=== PATIENT | male | born 1960 | race Caucasian/White ===

== ENCOUNTER 2017-05-25 05:38 | Observation (INO) | payer OTHER ==
[~2017-05-25] VITALS: Ht 172.7 cm; Wt 71.0 kg
[~2017-05-25 05:38] MED LIST: ACET500L PO; CLON0.2T PO; LISI40TA PO
[2017-05-25] MEDS ORDERED: INSULIN HUMAN REGULAR 1,000 UNITS/10 ML VIAL SQ PRN (06:00)
[2017-05-25] MEDS ORDERED: SODIUM CHLORID 0.9% 500 ML IV PRN (06:00)
[2017-05-25] MEDS ORDERED: METOPROLOL TARTRATE 25 MG TAB PO PRN (06:00)
[2017-05-25] MEDS ORDERED: CHLORHEXIDINE GLUCONATE 2 % 1 PACK (2 CLOTHS) TOPICAL PRN (06:00)
[2017-05-25] MEDS ORDERED: CLINDAMYCIN 900 MG/NS 100 ML IV SCH ×2 (06:15)
[2017-05-25] MEDS ORDERED: MAPA500T13 PO (06:22)
[2017-05-25] MEDS: LACTATED RINGER'S 1000 ML IV PRN ×2 (06:30→10:13)
[2017-05-25] MEDS ORDERED: BETAMETHASONE SOD PHOS/ACETATE SUSP 30 MG/5 ML VIAL ONE (06:34)
[2017-05-25] MEDS ORDERED: BUPIVACAINE/EPINEPHRINE 0.5% 50 ML VIAL ONE (06:34)
[2017-05-25] MEDS ORDERED: GELATIN 12 MM/7 MM FOAM ONE (06:35)
[2017-05-25] MEDS: POVIDONE IODINE 5% (ANTISEPSIS KIT) 4 APPLICATIONS EACH NARE PRN ×2 (06:35→10:13)
[2017-05-25] MEDS ORDERED: GENTAMICIN SULFATE 80 MG/2 ML VIAL ONE (06:35)
[2017-05-25] MEDS: POVIDONE IODINE 7.5% SCRUB 118 ML BOTTLE TOPICAL SCH ×2 (06:46→10:13)
[2017-05-25] MEDS ORDERED: ceFAZolin INJ 1,000 MG VIAL ONE (07:18)
[2017-05-25] MEDS ORDERED: BISACODYL 10 MG SUPP RECTAL PRN (09:30)
[2017-05-25] MEDS ORDERED: SODIUM CHLORIDE 0.9% FLUSH 10 ML FLUSH IV FLUSH PRN (09:30)
[2017-05-25] MEDS ORDERED: Post-op Orders (for Pharmacy) MISC XX ONE (09:30)
[2017-05-25] MEDS ORDERED: SOD PHOSPHATE/SOD BIPHOSPHATE (ADULT) ENEMA 133ML PR PRN (09:30)
[2017-05-25] MEDS ORDERED: ONDANSETRON HCL 4 MG/2 ML VIAL IV PUSH PRN (09:30)
[2017-05-25] MEDS ORDERED: oxyCODONE/ACETAMINOPHEN 5 MG/325 MG TAB PO PRN (09:30)
--- NOTE | 2017-05-25 09:30 | HHI.PR ---
cc: Madelyn Alberts MD Immediate Post Op Note Procedure Date: May 25, 2017 Pre Op Diagnosis: L3-L4 disc herniation with extrusion Post Op Diagnosis: same Surgeon: Madelyn Alberts Rod And Tube Straightener(s): Rex Martínez Procedure: L3-4 discectomy, laminectomy with partial facetectomy and foraminotomy Findings: Extruded L3-4 disc herniation, bilaterally Complications: none Specimen(s) removed: none Estimated blood loss: 50cc Anesthesia: General Drains: Hemovac Patient to: PACU Patient Condition: Good Date/Time of Procedure: SEE SURGICAL CARE RECORD Madelyn Alberts MD May 25, 2017 09:30
[2017-05-25] MEDS ORDERED: *MEPERIDINE 25 MG INJ VIAL PERIprocedural Use ONLY ONE (09:48)
--- NOTE | 2017-05-25 10:26 | PD.OP ---
cc: Madelyn Alberts MD Operative Report L3-L4 disc herniation with extruded fragments with radiculopathy Postoperative Diagnosis: Same Procedure: 1. L3-L4 laminectomies with partial facetectomies and foraminotomies Anesthesia: Gen. Surgeon: Madelyn Alberts Stakes Player(s): Rex Quigley Operation and Findings: Indications for procedure: Patient is a 56-year-old man who presented to my clinic after a work injury with acute onset of low back pain and bilateral radiculopathy. Patient had attempted several weeks of nonoperative management with anti-inflammatories, steroids, gabapentin, activity modification without any improvement. In fact, patient had worsening radiculopathy over the week prior to his visit. He reported several falls at home due to weakness and pain. On exam patient had severe radiculopathy in the right and left L4 nerve distributions with quad weakness and difficulty with ambulation as a result of this. Risks, benefits, alternatives were discussed with the patient. I did discuss the possibility of continuing nonoperative management, however, given his weakness I did also discuss the option of operative intervention in the form of L3-L4 decompression with bilateral hemilaminectomies, possible L4-L5 decompression. I did discuss with the patient the possibility of also performing central decompression given the size of the extruded disc fragments bilaterally. Risks of surgery including but not limited to: Anesthesia, infection, nerve injury leading to weakness and paralysis, hematoma, recurrent disc herniation, adjacent segment disease, future instability, possible need for further surgery, and other unforeseen complication was discussed with the patient. At this time he did wish to proceed with the above-mentioned procedure. Description of procedure: The patient was brought back to the operating room. Gen. anesthesia then ensued. The patient was then placed prone on the operating room table with all bony prominences well-padded. The patient was prepped and draped in standard sterile fashion. A timeout was performed to identify the correct patient, location, and procedure to be performed. Preoperative antibiotics were given prior to incision. The level was identified with fluoroscopy and a central midline incision was made through the skin and subcutaneous tissue. The paraspinals were elevated off the laminas and deep retractors placed. The interlaminar space at L3-L4 was identified and verified with fluoroscopy. Initially, a right-sided hemilaminectomy was performed, however, adequate access to the exiting and traversing nerve roots was unable to be obtained due to a large extruded disc fragment. At this time I made the decision to perform a full central decompression to allow better mobilization of the thecal sac and identification of the exiting and traversing nerve roots. Central decompression was then started at the L3-L4 with the use of a Leksell rongeur and a high-speed bur. Once the dorsal lamina was thinned, Kerrisons and Leksell's were utilized to remove the remaining lamina and ligamentum. The central decompression was then widened, including partial facetectomies and foraminotomies bilaterally, with the use of Kerrisons and curettes to allow identification of the exiting, L3 and traversing, L4 nerves, bilaterally. The thecal sac was mobilized towards the right, and several extruded disc fragments were removed from the left lateral recess. The exiting left L3 and traversing L4 nerve roots were found to be free of compression at this time. The thecal sac was then mobilized towards the left, a large extruded disc fragment was found in the right lateral recess compressing and pushing the L4 right nerve posterior and caudal. The right exiting L3 nerve was identified and protected and the extruded disc fragment was removed. The thecal sac, right L3 and right L4 nerve roots were found to be free of compression at this time. The wound was irrigated. The disc space was found to be flush with the vertebral bodies and no other extruded fragments were found. Once I was satisfied with the decompression, the wound was irrigated. Hemostasis was achieved with the use of bipolar electrocautery and thrombostatic agent. A deep Hemovac was placed. The fascia was then closed with deep #1 Vicryl. The subcutaneous tissue was closed with 3-0 Vicryl and the skin closed with Monocryl and Steri-Strips. A sterile dressing was placed. Patient was then placed back onto stretcher and awoken from general anesthesia without complication. It should be noted the patient remained hemodynamically stable throughout the procedure. Disposition: Patient will be mobilized today. Patient was instructed to avoid bending, lifting greater than 10 pounds, and twisting. Madelyn Alberts MD May 25, 2017 10:26
[2017-05-25] MEDS ORDERED: *morphine SULFATE 8 MG/ML PERIprocedure ONLY ONE (10:30)
[2017-05-25] MEDS ORDERED: MORPHINE SULFATE 2 MG/ML INJ IV PUSH PRN (11:00)
[2017-05-25] MEDS ORDERED: DO NOT ADM ANY ANTICOAGULANT DRUGS PRN (11:00)
[2017-05-25 11:58] VITALS: BP 136/90; PULSE 83; RESP 20; TEMP 97.3; O2SAT 96
[2017-05-25] MEDS ORDERED: ROCURONIUM INJ 50 MG/5 ML SYRINGE IV PUSH ONE (12:00)
[2017-05-25] MEDS ORDERED: DEXAMETHASONE SOD PHOS 4 MG/ML VIAL IV ONE (12:00)
[2017-05-25] MEDS ORDERED: PHENYLEPH/NS 1000 MCG/10 ML SYR IV ONE (12:00)
[2017-05-25] MEDS ORDERED: PROPOFOL 200 MG/20 ML AMP IV ONE (12:00)
[2017-05-25] MEDS ORDERED: PHENYLEPHRINE HCL 10 MG/ML VIAL IV ONE (12:00)
[2017-05-25] MEDS ORDERED: VECURONIUM BROMIDE 20 MG VIAL IV ONE (12:00)
[2017-05-25] MEDS ORDERED: LIDOCAINE HCL 1% PF 5 ML AMPULE OTHER ONE (12:00)
[2017-05-25] MEDS ORDERED: MIDAZOLAM HCL 2 MG/2 ML VIAL IV ONE (12:00)
[2017-05-25] MEDS ORDERED: ONDANSETRON HCL 4 MG/2 ML VIAL IV PUSH ONE (12:00)
[2017-05-25 13:57] VITALS: O2SAT 95
--- NOTE | 2017-05-25 14:32 | RADRPT ---
EXAM DATE/TIME: 05/25/2017 08:16 [facility] COMPARISON: No previous studies available for comparison. INDICATIONS : Lower back pain, L3-L4 laminectomy. MEDICAL HISTORY : None. SURGICAL HISTORY : None. ENCOUNTER: Initial ACUITY: 1 day PAIN SCORE: Non-responsive. LOCATION: Bilateral lumbar FINDINGS: FINDINGS: Single lateral view of the spine demonstrates the spine to be in anatomic alignment. A probe is in pl krupa at the L5 level. CONCLUSION: 1. Postsurgical changes as above. Randolph Radford MD on May 25, 2017 at 14:26 Board Certified Radiologist. This report was verified electronically.
[2017-05-25 16:01] VITALS: BP 152/102; PULSE 83; RESP 20; TEMP 98.4; O2SAT 93
[2017-05-25 19:56] VITALS: BP 163/101; PULSE 88; RESP 20; TEMP 98.2; O2SAT 94
[2017-05-25] MEDS: SODIUM CHLORIDE 0.9% FLUSH 10 ML FLUSH IV FLUSH SCH (21:00)
[2017-05-25] MEDS: oxyCODONE/ACETAMINOPHEN 5 MG/325 MG TAB PO PRN (23:33)
[2017-05-25 23:54] VITALS: BP 158/93; PULSE 88; RESP 18; TEMP 98.2; O2SAT 94
[2017-05-26] MEDS: oxyCODONE/ACETAMINOPHEN 5 MG/325 MG TAB PO PRN (03:33)
[2017-05-26 04:20] VITALS: BP 156/94; PULSE 85; RESP 20; TEMP 98.1; O2SAT 97
[2017-05-26] MEDS ORDERED: OXYC1TAB63 PO (07:20)
--- NOTE | 2017-05-26 07:22 | HHI.DS ---
Discharge Summary Admission Date May 25, 2017 at 09:33 Discharge Date: May 26, 2017 Admitting Diagnosis L3-L4 disc herniation with radiculopathy Diagnosis: (1) Lumbar disc herniation with radiculopathy Diagnosis: Principal ICD Codes: M51.16 - Intervertebral disc disorders with radiculopathy, lumbar region Brief History This is a 56 year old male patient failed nonoperative management and therefore ended up having operative treatment. Hospital Course This is a 56-year-old male patient who underwent L3 4 decompression and discectomy for herniated disc with extruded component. Patient was admitted after surgery for 23 observation. Patient's pain was well-controlled and tolerated a regular diet. The drain and dressing were pulled and changed. Patient was mobilizing well without assistance and was therefore discharged home. Pt Condition on Discharge: Good Discharge Disposition: Discharge Home Discharge Instructions Diet Instructions: As Tolerated, No Restrictions Activities You Can Perform: Weight Bearing as Samuel Activities to Avoid: Driving for 24 hrs Additional Activity Instruc.: No heavy bending, twisting, or lifting >10lbs. Restrict sitting periods to less than 1hr. Madelyn Alberts MD May 26, 2017 07:22
--- NOTE | 2017-05-26 07:25 | PD.ORT.PN ---
Subjective Subjective Remarks Patient doing well this morning. Sitting up at bedside chair. Reports bilateral leg pain improved. Still has some numbness and tingling especially in the left leg. Mild back ache. Denies fevers chills or nausea or vomiting. Objective Vitals Vital Signs Date Time Temp Pulse Resp B/P (MAP) Pulse Ox O2 Delivery O2 Flow Rate FiO2 05/26/17 04:20 98.1 85 20 156/94 (114) 97 05/25/17 23:54 98.2 88 18 158/93 (114) 94 05/25/17 19:56 98.2 88 20 163/101 (121) 94 05/25/17 16:01 98.4 83 20 152/102 (119) 93 05/25/17 13:57 95 21 05/25/17 11:58 97.3 83 20 136/90 (105) 96 05/25/17 11:00 84 16 123/83 (96) 98 Room Air 05/25/17 10:45 82 16 121/74 (90) 97 Room Air 05/25/17 10:30 80 16 121/83 (96) 95 Room Air 05/25/17 10:15 76 16 118/79 (92) 95 Room Air 05/25/17 10:00 80 16 118/79 (92) 96 Room Air 05/25/17 09:44 98.1 88 16 119/83 (95) 99 I/O 05/25/17 05/25/17 05/25/17 05/26/17 05/26/17 05/26/17 07:00 15:00 23:00 07:00 15:00 23:00 Intake Total 2030 ml 100 ml Output Total 50 ml Balance 1980 ml 100 ml Intake IV Total 2030 ml 100 ml Output Estimated Blood Loss 50 ml # Voids 2 2 # Bowel Movements 0 0 Objective Remarks Awake, alert, no acute distress Bilateral lower extremities: 5 out of 5 strength in quads, hamstrings, hip flexors, gastrocs, tib ant, EHL and FHL. Sensation intact throughout. Brisk cap refill. Assessment & Plan Problem List: (1) Lumbar disc herniation with radiculopathy ICD Codes: M51.16 - Intervertebral disc disorders with radiculopathy, lumbar region Assessment and Plan 56-year-old man, postop day #1 status post L3 4 bilateral laminectomy for disc herniation 1. Patient can be weightbearing as tolerated and is encouraged to ambulate. I discussed with the patient his restrictions regarding bending, twisting, lifting greater than 10 pounds. I also discussed with the patient that he should limit his sitting to less than 30 minutes if possible. 2. We'll ask nursing to change dressing and pull drain. New Xeroform and Primapore or 4 x 4's and tape should be applied. 3. Prescriptions are placed on chart. Patient to be discharged home this morning. Follow-up appointment should already be made for approximately 2 weeks. Madelyn Alberts MD May 26, 2017 07:25
[2017-05-26 08:18] VITALS: BP 167/102; PULSE 84; RESP 18; TEMP 97.9; O2SAT 96
[2017-05-26] MEDS: SODIUM CHLORIDE 0.9% FLUSH 10 ML FLUSH IV FLUSH SCH (08:25)
[2017-05-26] MEDS ORDERED: INFLUENZA VIRUS VACCINE (QUADRIVALENT) 0.5 ML SYR IM ONE (09:00)
[2017-05-26] MEDS ORDERED: LISINOPRIL 20 MG TAB PO SCH (09:00)
[2017-05-26] MEDS ORDERED: cloNIDine HCL 0.2 MG TAB PO SCH (09:00)
[2017-05-26] MEDS ORDERED: DOCUSATE SODIUM 100 MG CAP PO SCH (21:00)
== END 2017-05-26 08:41 | disposition home or self-care (01) ==
LOC: HSDC 05:38 → HSDI 09:33 → N05B 11:57
PROVIDERS: ADMIT Orthopaedic Surgery Orthopaedic Surgery of the Spine; ATTEND Orthopaedic Surgery Orthopaedic Surgery of the Spine
DX: M51.16 Intervertebral disc disorders with radiculopathy, lumbar region (principal); M51.36 Other intervertebral disc degeneration, lumbar region; M43.17 Spondylolisthesis, lumbosacral region; F17.210 Nicotine dependence, cigarettes, uncomplicated; Z23 Encounter for immunization
CPT/HCPCS: 00630; 63030; 72020; 76000; 90471; 90686; 94150; 96365; 96372; 97162; G0378; G8987; G8988; J0690; J1100; J1580; J2175; J2250; J2270; J2370; J2405; J3010; J7120; G0008; J0702; Q2038